=== PATIENT | female | born 2000 ===

== ENCOUNTER 2021-02-14 14:36 | Emergency (ER) | payer OTHER ==
[~2021-02-14] VITALS: Ht 165.1 cm; Wt 54.9 kg
[2021-02-14 14:38] VITALS: BP 98/57
== END 2021-02-14 20:40 | disposition left against medical advice (07) ==
LOC: ER 14:36
DX: N93.9 Abnormal uterine and vaginal bleeding, unspecified (principal); Z53.21 Procedure and treatment not carried out due to patient leaving prior to being seen by health care provider
CPT/HCPCS: 36415; 84702